=== PATIENT | male | born 1995 | race Asian ===

== ENCOUNTER 2018-07-20 23:01 | Emergency (ER) | payer BC ==
[~2018-07-20] VITALS: Ht 177.8 cm; Wt 63.5 kg
[2018-07-20] MEDS ORDERED: IBUPROFEN 800 MG TABLET PO ONE (23:30)
[2018-07-21 00:15] VITALS: BP_SYST 136
== END 2018-07-21 00:15 | disposition home or self-care (01) ==
LOC: SED 23:01
DX: M25.551 Pain in right hip (principal); M25.552 Pain in left hip; R10.2 Pelvic and perineal pain; R51 Headache; V43.92XA Unspecified car occupant injured in collision with other type car in traffic accident, initial encounter; Y93.89 Activity, other specified; Y92.410 Unspecified street and highway as the place of occurrence of the external cause; Y99.8 Other external cause status
CPT/HCPCS: 73521; 99283